=== PATIENT | male | born 2000 | race Caucasian/White ===

== ENCOUNTER 2024-04-09 21:17 | Emergency (ER) | payer OTHER ==
[~2024-04-09] VITALS: Ht 172.7 cm; Wt 56.0 kg
[2024-04-09] MEDS ORDERED: levetiracetam inj 1,500 MG in normal saline 100ml IV soln 100 ML IV ONE (22:25)
[2024-04-09 22:27] LABS: BASOPHILS # (AUTO) 0.1 X10'3 (0-0.2); BASOPHILS % (AUTO) 0.3 % (0-1); EOSINOPHILS % (AUTO) 0 % (0-6); HEMATOCRIT 43.9 % (42.0-52.0); HEMOGLOBIN 15.2 g/dl (14.0-17.9); LYMPHOCYTES # (AUTO) 0.7 X10'3 (1.1-4.8); LYMPHOCYTES % (AUTO) 4.1 % (21-51); MEAN CORPUSCULAR HGB CONC 34.7 g/dL (33.0-36.5); MEAN CORPUSCULAR VOLUME 89.4 FL (78-98); MEAN PLATELET VOLUME 9.6 FL (7.4-10.4); MONOCYTES # (AUTO) 0.9 X10'3 (0-0.9); MONOCYTES % (AUTO) 5.4 % (2-12); NEUTROPHILS # (AUTO) 15.5 X10'3 (1.8-7.7); NEUTROPHILS % (AUTO) 90.2 % (42-75); PLATELET COUNT 215 X10'3 (140-440); RED BLOOD COUNT 4.91 X10'6 (4.70-6.10); RED CELL DISTRIBUTION WIDTH 12.5 % (11.5-14.5); WHITE BLOOD COUNT 17.2 X10'3 (4.5-11.0)
[2024-04-09 22:40] LABS: ALANINE AMINOTRANSFERASE 19 U/L (12-78); ALBUMIN 4.4 G/DL (3.4-5.0); ALBUMIN/GLOBULIN RATIO 1.5 (1.1-1.5); ALKALINE PHOSPHATASE 71 IU/L (46-116); ANION GAP 11 (8-16); ASPARTATE AMINO TRANSFERASE 21 U/L (10-37); BILIRUBIN,TOTAL 0.7 MG/DL (0.1-1.0); BLOOD UREA NITROGEN 8 MG/DL (7-18); BUN/CREATININE RATIO 7.4 (10.0-20.0); CALCIUM 9.1 MG/DL (8.5-10.1); CHLORIDE 102 MMOL/L (99-107); CREATININE 1.08 MG/DL (0.60-1.10); GLUCOSE 138 MG/DL (70-104); POTASSIUM 3.8 MMOL/L (3.5-5.1); SODIUM 138 MMOL/L (135-145); TOTAL CARBON DIOXIDE 24.9 MMOL/L (24-32); TOTAL PROTEIN 7.4 G/DL (6.4-8.2); eCRCL 86 ML/MIN; eGFR 86 ML/MIN
[2024-04-09] MEDS: levetiracetamNACL 1500mg/100mL 100 ML IV ONE (22:44)
[2024-04-09] MEDS: normal saline 1000ml 1,000 ML IV ONE (22:49)
[2024-04-09] MEDS: acetaminophen 1,000mg/100ml IV 100 ML IV ONE (22:51)
[2024-04-09] MEDS: ondansetron/PF 4mg/2ml inj IV ONE (23:58)
[2024-04-10 00:36] LABS: BILIRUBIN,URINE NEGATIVE (Neg); CLARITY,URINE CLEAR (Clear); COLOR,URINE YELLOW (Yellow); GLUCOSE, URINE NEGATIVE (Neg); KETONES,URINE >=80 mg/dl (Neg); LEUKOCYTE ESTERASE ,URINE NEGATIVE (Neg); NITRITES, URINE NEGATIVE (Neg); OCCULT BLOOD,URINE TRACE-INTACT (Neg); PROTEIN,URINE 30 mg/dl (Neg); UROBILINOGEN,URINE 0.2 E.U/dL (0.2-1.0)
[2024-04-10 00:43] LABS: UA COLLECTION TYPE NON-SPECIFIED
[2024-04-10 00:44] LABS: BACTERIA,URINE 1+ /HPF (Neg); HYALINE CASTS 0-3 /LPF (NEGATIVE); MUCUS STRANDS FEW /LPF (Neg); RBC,URINE 0-2 /HPF (0-2); SQUAMOUS EPITHELIAL CELL,UR FEW /LPF (FEW); WBC,URINE 0-4 /HPF (0-4)
[2024-04-10] MEDS ORDERED: KEP500T PO (01:23)
[2024-04-10] MEDS: proCHLORperazine 10 MG/2 ml inj IV ONE (01:30)
[2024-04-10] MEDS: ketorolac trometh 15mg/ml vial 15 MG/ML ML IV ONE (01:30)
[2024-04-10] MEDS: diphenhydrAMINE 50 mg/ml inj IV ONE (01:30)
[2024-04-10 01:40] VITALS: BP 134/68; PULSE 78; RESP 14; TEMP 98.4; O2SAT 98
== END 2024-04-10 01:30 | disposition home or self-care (01) ==
LOC: ER 21:18
DX: G40.909 Epilepsy, unspecified, not intractable, without status epilepticus (principal)
CPT/HCPCS: 36415; 70450; 80053; 81001; 85025; 93005; 96365; 96368; 96375; 99285; J0131; J0780; J1885; J1953; J2405; J7030

== ENCOUNTER 2025-02-06 17:10 | Emergency (ER) | payer BC, OTHER ==
[~2025-02-06] VITALS: Ht 172.7 cm; Wt 60.6 kg
[~2025-02-06 17:10] MED LIST: KEP500T PO
[2025-02-06 17:19] VITALS: TEMP 98.6
--- NOTE | 2025-02-06 19:04 | Physician Documentation ---
History of Present Illness ~ Chief Complaint: Groin Pain Stated Complaint: GROIN PAIN Time Seen by MD: 22:22 HPI 24-year-old male otherwise healthy presents to the emergency department for evaluation of right lower quadrant groin pain without recent illness injury, dysuria, hematuria or scrotal testicular pain. No reported fever, nausea or vomiting and/or diarrhea. MSE completed in triage. Patient is nontoxic presenting. History as above. Symptoms began four days ago. Medication Reconciliation Allergies: Uncoded Allergies: SHELLFISH (Allergy, Severe, ANAPHALAXIS, 02/06/25) Scheduled Levetiracetam (Keppra), 1 TAB PO Q12H Review of Systems ROS All review of systems negative except as per HPI Physical Exam Vital Signs: Temperature: 98.6, Source: Oral, Heart Rate: 99, Respiratory Rate: 15, BP: 120/56, Pulse Oximetry: 99, Weight: 60.600 Oxygen Flow Rate: 0 Physical Exam General: Patient is awake, alert, oriented x4 in no acute distress and well appearing.~ Head: Normocephalic and atraumatic. Eyes: Conjunctival normal. EOMI. PERRL. ENT: Mucous membranes moist. Neck: Supple, trachea is midline. Chest: Clear to auscultation bilaterally without rales, rhonchi, or wheezes. There is no accessory muscle use or retractions. Cardiac: RRR without murmurs, gallops, or rubs. : Cremasteric reflex intact bilaterally mild tenderness to palpation to right testicle. No appreciable hernia on Valsalva. Normal circumcised penis Progress Results/Orders Results/Orders Completed Orders - [facility] ROBERT[facility] PAC Urinalysis, Cult If Indicated (02/06/25 18:43) CMP (02/06/25 18:43) Cbc/Diff (02/06/25 18:43) Lipase (02/06/25 18:43) Vital Signs 02/06/25 02/06/25 02/06/25 02/07/25 17:19 18:42 22:38 00:39 Temp 98.6 Pulse 59 99 72 Resp 16 15 18 16 B/P (MAP) 114/65 120/56 (77) 119/74 Pulse Ox 100 99 96 O2 Flow Rate 0 Laboratory Tests Test 02/06/25 18:51 02/06/25 19:30 White Blood Count 7.1 Red Blood Count 5.22 Hemoglobin 16.1 Hematocrit 45.8 Mean Corpuscular Volume 87.7 Mean Corpuscular Hemoglobin 30.8 Mean Corpuscular Hemoglobin Concent 35.1 Red Cell Distribution Width 12.9 Platelet Count 218 Mean Platelet Volume 9.5 Neutrophils (%) (Auto) 60.0 Lymphocytes (%) (Auto) 31.8 Monocytes (%) (Auto) 6.9 Eosinophils (%) (Auto) 0.8 Basophils (%) (Auto) 0.5 Neutrophils # (Auto) 4.3 Lymphocytes # (Auto) 2.3 Monocytes # (Auto) 0.5 Eosinophils # (Auto) 0.1 Basophils # (Auto) 0.0 CBC Comment Sodium Level 143 Potassium Level 3.7 Chloride Level 105 Carbon Dioxide Level 30.2 Anion Gap 8 Blood Urea Nitrogen 8 Creatinine 0.80 Estimated GFR/1.73 m2 > 90 BUN/Creatinine Ratio 10.0 Glucose Level 86 Calcium Level 9.2 Total Bilirubin 0.6 Aspartate Amino Transf (AST/SGOT) 21 Alanine Aminotransferase (ALT/SGPT) 20 Alkaline Phosphatase 76 Total Protein 8.4 H Albumin 4.9 Globulin 3.5 Albumin/Globulin Ratio 1.4 Lipase 20 Chemistry Comments Urine Specimen Description Cln catch midstream Urine Color Yellow Urine Clarity Clear Urine pH 7.0 Urine Specific [place] 1.015 Urine Protein Negative Urine Glucose (UA) Negative Urine Ketones Negative Urine Occult Blood Negative Urine Nitrite Negative Urine Bilirubin Negative Urine Urobilinogen 0.2 Urine Leukocyte Esterase Negative Urine Culture Indicated Not ind Volume Urine Centrifuged 10 ml Urine Comment Medical Decision Making Additional information obtaine: N/A Findings Patient presented to the emergency room with right-sided testicular pain. Differentials include but are not limited to torsion, epididymitis, cancer, hernia therefore labs and ultrasound ordered. Ultrasound reassuring. Unknown cause for patient's testicular pain. Recommended wearing tighter fitting underwear and ibuprofen and Tylenol for pain. Urinary Diff Dx:Considerations: Include: AAA, Aortic dissection, Appendicitis, Appendicitis train, Bowel obstruction, Bladder outlet obstruc., Cholelithiasis, Choleangitis, Cholecystitis, DJD, Epididymitis, Hepatitis, HNP, Impaction, Musculoskeletal pain, Pancreatitis, Postoperative Comp., Prostatitis, Pyelonephritis, Renal failure, Renal infarction, Strain, Urolithiasis, Urinary Obstruction, Urethritis, Urinary retention, UTI, Other Genital Diff Dx:Considerations: Include: Abscess, Balanitis, Balanoposthitis, Cellulitis, Epididymitis, Entrapment injury, Danielle's gangrene, Foreign body, Facture penis, Hydrocele, Inguinal hernia, Post-op Complication, Paraphimosis, Prostatitis, Priapism, Syphilis, Testicular torsion, Torsion-epididymis, Torsion-appendiceal, Urinary retention, Urethritis, Urethritis-chlamydial, Urethritis-gonococcal, UTI, Other Departure Disposition: HOME / SELF CARE / HOMELESS Impression: Primary Impression: Testicular pain, right Condition: Stable Discharge Instructions: Testicular Self-Exam Additional Instructions: Ultrasound was reassuring today. No abnormality in your urine. I could not appreciate a hernia. Unknown cause for your pain. Possibility from loose fi tting underwear. Recommend more constrictive underwear and ibuprofen and Tylenol for pain. Referrals: NO PRIMARY CARE PROVIDER (PCP) Signature Scribe Signature: No scribe Attestation: The note accurately reflects work and decisions made by me.Kin Morris MD 02/07/25 00:28 [facility] ROBERTSON Feb 06, 2025 19:04 KIN MORRIS MD Feb 06, 2025 22:29
[2025-02-06 19:09] LABS: MEAN PLATELET VOLUME 9.5 FL (7.4-10.4); RED CELL DISTRIBUTION WIDTH 12.9 % (11.5-14.5)
[2025-02-06 19:16] LABS: CREATININE 0.80 MG/DL (0.60-1.10); TOTAL CARBON DIOXIDE 30.2 MMOL/L (24-32); eCRCL 124 ML/MIN; eGFR > 90 ML/MIN
[2025-02-06 19:44] LABS: LEUKOCYTE ESTERASE ,URINE NEGATIVE (Neg); NITRITES, URINE NEGATIVE (Neg); OCCULT BLOOD,URINE NEGATIVE (Neg)
[2025-02-06 20:00] LABS: UA COLLECTION TYPE CLN CATCH MIDSTREAM
[2025-02-06] MEDS: ibuprofen tablet 400 MG TABLET PO ONE (23:24)
--- NOTE | 2025-02-07 00:22 | RADIOLOGY REPORT ---
ULTRASOUND OF SCROTUM AND CONTENTS. INDICATION: testicular pain COMPARISON: None TECHNIQUE: Multiple real-time grayscale sonographic and color and duplex Doppler images of the scrotum and its contents were obtained. FINDINGS: The right testicle measures 3.0 x 2.7 x 1.8 cm. The left testicle measures 3.8 x 2.8 x 1.7 cm. Both testicles demonstrate homogeneous echotexture without evidence of focal lesions. The right epididymis measures 1.0 cm. The left epididymis measures 0.8 cm. Multiple cystic structures within the right epididymis measure up to 4 mm. Subsequent color and duplex Doppler interrogation of the testes demonstrated symmetric normal vascular flow to both testicles. No focal areas of hyperemia were seen. IMPRESSION: 1. No evidence of torsion, epididymitis, and/or orchitis. 2. Multiple right epididymal cysts.
[2025-02-07 00:39] VITALS: BP 119/74; PULSE 72; RESP 16; O2SAT 96
== END 2025-02-07 00:40 | disposition home or self-care (01) ==
LOC: ER 17:10
DX: N50.811 Right testicular pain (principal)
CPT/HCPCS: 36415; 76870; 80053; 81003; 83690; 85025; 93976; 99284